=== PATIENT | female | born 1960 | race Caucasian/White ===

== ENCOUNTER → 2016-10-05 | Outpatient (CLI) | payer OTHER | LOC: FIMAGING 08:50 | PROVIDERS: ATTEND Family Medicine | DX: N63 Unspecified lump in breast (principal); Z98.82 Breast implant status ==

== ENCOUNTER → 2016-10-06 | Outpatient (CLI) | payer BC | LOC: FIMAGING 16:50 | PROVIDERS: ATTEND Family Medicine | DX: M25.531 Pain in right wrist (principal); G89.29 Other chronic pain; R93.6 Abnormal findings on diagnostic imaging of limbs ==

== ENCOUNTER → 2017-05-28 | Outpatient (CLI) | payer BC | LOC: BMCIMAGING 16:24 | PROVIDERS: ATTEND Family Medicine | DX: S62.511A Displaced fracture of proximal phalanx of right thumb, initial encounter for closed fracture (principal) ==

== ENCOUNTER → 2017-07-24 | Outpatient (CLI) | payer BC | LOC: FIMAGING 12:13 | PROVIDERS: ATTEND Family Medicine Sports Medicine | DX: M85.841 Other specified disorders of bone density and structure, right hand (principal); M77.32 Calcaneal spur, left foot ==

== ENCOUNTER → 2017-08-28 | Outpatient (CLI) | payer BC | LOC: FIMAGING 12:20 | PROVIDERS: ATTEND Nurse Practitioner Women's Health | DX: Z12.31 Encounter for screening mammogram for malignant neoplasm of breast (principal) ==